=== PATIENT | male | born 1950 | race Caucasian/White ===

== ENCOUNTER 2020-11-23 12:58 | Emergency (ER) | payer MEDICARE ==
[~2020-11-23 12:58] MED LIST: Sodium Chloride 0.9% 1,000 ML BAG ONE
[2020-11-23] MEDS ORDERED: Iopamidol 370 76% 100 ML VIAL ONE (13:16)
[2020-11-23] MEDS ORDERED: Ondansetron PF 4 MG/2 ML Vial ONE (13:40)
[2020-11-23] MEDS ORDERED: Morphine 4 MG/ML VIAL ONE ×2 (13:40→16:08)
[2020-11-23] MEDS ORDERED: Sodium Chloride 0.9% 1,000 ML ONE (13:40)
[2020-11-23 13:54] LABS: Band 5 % (5-11); Hemoglobin 14.9 g/dL (14.0-18.0); Lymphocytes 9 % (21-51); MDiff Complete? YES; Mean Corpuscular HGB CONC 32.6 g/dL (32.0-36.0); Mean Corpuscular Hemoglobin 29.5 pg (27.0-31.0); Mean Corpuscular Volume 90.6 fL (78.0-98.0); Mean Platelet Volume 10.4 fL (7.4-10.4); Neutrophil 86 % (42-75); Platelet Count 275 thou/uL (130-400); RBC Distribution Width 11.8 % (11.5-14.5); Red Blood Cell (RBC) Count 5.03 mill/uL (4.70-6.10); Toxic Granulation SLIGHT; Vacuoles SLIGHT; White Blood Cell (WBC) Count 28.6 thou/uL (4.8-10.8)
[2020-11-23 13:55] LABS: ALT (SGPT) 43 U/L (8-55); AST (SGOT) 27 U/L (5-34); Alkaline Phosphatase 73 U/L (40-110); Anion Gap 15 mmol/L (10-20); BUN (Urea Nitrogen) 11 mg/dL (8.4-25.7); Calc. Creatinine Clearance 0 mL/min (70-130); Calcium 8.8 mg/dL (7.8-10.44); Carbon Dioxide 24 mmol/L (23-31); Chloride 95 mmol/L (98-107); Glucose 130 mg/dL (80-115); Lipase 130 U/L (8-78); Potassium 4.1 mmol/L (3.5-5.1); Sodium 130 mmol/L (136-145)
[2020-11-23 15:27] LABS: Bilirubin Negative (Negative); Blood, Urine Negative (Negative); Clarity Clear (Clear); Glucose, Urine (Dipstick) Negative (Negative); Ketone, Urine Trace mg/dL (Negative); Leukocyte Negative (Negative); Nitrite Negative (Negative); Protein, Urine (Dipstick) Negative (Neg-Trace); Urobilinogen 0.2 mg/dL (Less than 2); pH, Urine 6.5 (5.0-9.0)
[2020-11-23] MEDS ORDERED: Cefepime 2 GM VIAL ONE (15:58)
[2020-11-23] MEDS ORDERED: Sodium Chloride 0.9% 100 ML ONE (15:58)
== END 2020-11-23 17:20 | disposition short-term general hospital (02) ==
LOC: MADERS 12:58
DX: K85.90 Acute pancreatitis without necrosis or infection, unspecified (principal); I10 Essential (primary) hypertension; J44.9 Chronic obstructive pulmonary disease, unspecified; Z87.891 Personal history of nicotine dependence; Z79.899 Other long term (current) drug therapy
CPT/HCPCS: 36416; 74177; 80053; 81003; 83605; 83690; 84484; 85025; 93005; 96365; 96375; 96376; 36415-59; J0692; J2270; J2405; J3490; J7050; Q9967